=== PATIENT | female | born 1990 | race African-American/Black ===

== ENCOUNTER 2017-06-12 20:58 | Emergency (ER) | payer MEDICAID ==
[~2017-06-12] VITALS: Ht 165.1 cm; Wt 105.0 kg
[2017-06-13 00:54] LABS: CLARITY URINE CLEAR (CLEAR); COLOR URINE YELLOW (YELLOW); GLUCOSE URINE NEGATIVE (NEGATIVE); KETONES URINE NEGATIVE (NEGATIVE); LEUKOCYTE ESTERASE URINE TRACE (NEGATIVE); NITRITE URINE NEGATIVE (NEGATIVE); OCCULT BLOOD URINE NEGATIVE (NEGATIVE); PROTEIN URINE NEGATIVE (NEGATIVE); SPECIFIC GRAVITY URINE 1.027 (1.005-1.030)
[2017-06-13 01:44] LABS: BASOPHILS % 0.6 % (0.0-2.0); HEMATOCRIT. 33.5 % (36.0-48.0); MEAN CORPUSCULAR VOLUME 88.1 fL (81.0-99.0); MEAN PLATELET VOLUME 9.2 fl (7.4-10.4); MONOCYTES % 5.8 % (2.0-8.0); NEUTROPHILS % 60.6 % (40.0-76.0); PLATELET 210 x1000/uL (130-400); RED CELL DISTRIBUTION WIDTH 13.3 % (11.6-14.6)
[2017-06-13 01:45] VITALS: BP 139/89
[2017-06-13] MEDS ORDERED: AMOXICILLIN/POTASSIUM CLAVULANATE 875/125MG TAB PO ONE (01:45)
[2017-06-13] MEDS ORDERED: IBUPROFEN 800MG TABLET PO ONE (01:45)
== END 2017-06-13 02:11 | disposition home or self-care (01) ==
LOC: ER 21:29
DX: J32.9 Chronic sinusitis, unspecified (principal); N93.8 Other specified abnormal uterine and vaginal bleeding
CPT/HCPCS: 36415; 81001; 81025; 85025; 99284

== ENCOUNTER 2020-01-15 03:26 | Emergency (ER) | payer MEDICAID ==
[~2020-01-15] VITALS: Ht 165.1 cm; Wt 135.0 kg
[2020-01-15 03:44] VITALS: BP 156/93
[2020-01-15] MEDS ORDERED: CEFTRIAXONE SODIUM 250 MG/VIAL IM ONE (04:15)
[2020-01-15] MEDS ORDERED: AZITHROMYCIN 500 MG TABLET PO ONE (04:15)
[2020-01-15 05:46] LABS: CLARITY URINE CLOUDY (CLEAR); COLOR URINE DARK YELLOW (YELLOW); KETONES URINE TRACE (NEGATIVE); LEUKOCYTE ESTERASE URINE TRACE (NEGATIVE); NITRITE URINE NEGATIVE (NEGATIVE); OCCULT BLOOD URINE 3+ (NEGATIVE); PH URINE 5.5 (4.5-8.0); PROTEIN URINE 1+ (NEGATIVE); SPECIFIC GRAVITY URINE 1.029 (1.005-1.030)
[2020-01-19 04:07] LABS: NEISSERIA GONORRHOEAE NAA Negative (Negative)
== END 2020-01-15 05:35 | disposition home or self-care (01) ==
LOC: ER 03:26
DX: B37.9 Candidiasis, unspecified (principal); Z11.3 Encounter for screening for infections with a predominantly sexual mode of transmission; Z98.890 Other specified postprocedural states
CPT/HCPCS: 81003; 81025; 87491; 87591; 96372; 99283; J0696

== ENCOUNTER 2020-09-14 17:59 | Emergency (ER) | payer MEDICAID ==
[~2020-09-14] VITALS: Ht 175.3 cm; Wt 111.0 kg
[2020-09-14 18:00] VITALS: BP 180/82
[2020-09-14] MEDS ORDERED: DOXY100C2 MT (19:25)
[2020-09-14] MEDS ORDERED: IBUP-2029 MT (19:26)
[2020-09-14] MEDS ORDERED: DOXYCYCLINE HYCLATE 100MG CAPSULE PO ONE (19:30)
[2020-09-14] MEDS ORDERED: CEFTRIAXONE SODIUM 500 MG/VIAL IM ONE (19:30)
== END 2020-09-14 19:47 | disposition home or self-care (01) ==
LOC: ER 17:59
DX: J02.9 Acute pharyngitis, unspecified (principal); Z20.2 Contact with and (suspected) exposure to infections with a predominantly sexual mode of transmission
CPT/HCPCS: 96372; 99283; J0696

== ENCOUNTER 2021-10-30 01:30 | Emergency (ER) | payer MEDICAID ==
[~2021-10-30] VITALS: Ht 167.6 cm; Wt 131.7 kg
[~2021-10-30 01:30] MED LIST: DOXY100C5 MT; IBUP-2029 MT
[2021-10-30] MEDS ORDERED: HYDROCODONE/ACETAMINOPHEN 5/325MG TABLET PO ONE (02:30)
[2021-10-30] MEDS ORDERED: SULF1TAB48 MT (03:49)
[2021-10-30] MEDS ORDERED: AMOX500T2 PO (03:49)
[2021-10-30] MEDS ORDERED: SULFAMETHOXAZOLE/TRIMETHOPRIM 800/160MG TABLET PO ONE (04:00)
[2021-10-30] MEDS ORDERED: AMOXICILLIN 500 MG CAPSULE PO ONE (04:00)
[2021-10-30 04:12] VITALS: BP 152/86
[2021-10-30] MEDS ORDERED: AMOXICILLIN/POTASSIUM CLAVULANATE 875/125MG TAB PO NR (04:15)
== END 2021-10-30 04:12 | disposition home or self-care (01) ==
LOC: ER 01:30
DX: L03.213 Periorbital cellulitis (principal)
CPT/HCPCS: 81025; 99284

== ENCOUNTER 2022-06-25 15:08 | Emergency (ER) | payer MEDICAID ==
[~2022-06-25] VITALS: Ht 177.8 cm; Wt 80.0 kg
[~2022-06-25 15:08] MED LIST changes: +AMOX500T2 PO; +SULF1TAB48 MT
[2022-06-25] MEDS ORDERED: LIDOCAINE 5% PATCH TOP SCH (18:30)
[2022-06-25] MEDS ORDERED: IBUPROFEN 400MG TABLET PO ONE (18:30)
[2022-06-25] MEDS ORDERED: METHOCARBAMOL 500MG TABLET PO ONE (18:30)
[2022-06-25 19:16] VITALS: BP 143/87
[2022-06-25] MEDS ORDERED: METH-653 MT (19:37)
[2022-06-25] MEDS ORDERED: LIDO1ADH71 TOP (19:37)
== END 2022-06-25 19:59 | disposition home or self-care (01) ==
LOC: ER 15:08
DX: M54.89 Other dorsalgia (principal); M79.605 Pain in left leg; M54.2 Cervicalgia; G89.11 Acute pain due to trauma; W20.8XXA Other cause of strike by thrown, projected or falling object, initial encounter; Y93.89 Activity, other specified; Y92.89 Other specified places as the place of occurrence of the external cause; Y99.0 Civilian activity done for income or pay
CPT/HCPCS: 99284